=== PATIENT | male | born 1975 | race Caucasian/White ===

== ENCOUNTER 2024-01-23 12:43 | Outpatient (CLI) | payer BC ==
[~2024-01-23 12:43] MED LIST: CETI-1 PO; CYCL-394 PO; GABA-338 PO; MONT-48 PO
== END 2024-01-23 23:59 | disposition home or self-care (01) ==
LOC: RAD 12:43
PROVIDERS: ATTEND Physician Assistant
DX: S62.001A Unspecified fracture of navicular [scaphoid] bone of right wrist, initial encounter for closed fracture (principal); M19.031 Primary osteoarthritis, right wrist; M25.831 Other specified joint disorders, right wrist; M25.431 Effusion, right wrist; Z98.890 Other specified postprocedural states; X58.XXXA Exposure to other specified factors, initial encounter; Y93.89 Activity, other specified; Y92.89 Other specified places as the place of occurrence of the external cause; Y99.8 Other external cause status
CPT/HCPCS: 73200